=== PATIENT | female | born 1965 | race African-American/Black ===

== ENCOUNTER → 2018-11-13 | Outpatient (CLI) | payer OTHER ==
--- NOTE | 2018-11-13 11:04 | Diagnostic Imaging Report ---
FLUOROSCOPIC SMALL BOWEL SERIES COMPO CONVEYOR OPERATOR(S): Dhiraj Lynn MD Indication: Anemia. Comparison: None. Radiation Dose: Total dose: 2.8 mGy Total fluoroscopy time: 0.4 minutes Procedure: Small bowel follow through exam was performed using oral barium. Preliminary image was obtained before administration of contrast and serial overhead images were obtained after administration of oral barium. Fluoroscopy was performed and spot images were obtained. DISCUSSION: WAITER/WAITRESS CLUB: The bowel gas pattern is non-obstructive. No acute bony abnormality. Moderate amount of stool in the colon. STOMACH: Unremarkable mucosal pattern. SMALL BOWEL: Bulb and sweep are normal. Duodenal-jejunal junction is in the normal expected position. Small bowel loops are normal in caliber and distribution. There is no evidence of fistula, mucosal changes, stricture or dilation. The transit time was within normal limits. Spot image of the terminal ileum was unremarkable. COLON: Filling defects within the proximal colon likely reflect stool contents. IMPRESSION: Unremarkable fluoroscopic small bowel series. Signed by: Dr. Dhiraj Lynn MD on 11/13/2018 11:00 AM
== END ==
LOC: DX 07:29
PROVIDERS: ATTEND Internal Medicine Gastroenterology
DX: D64.9 Anemia, unspecified (principal)
CPT/HCPCS: 74250